=== PATIENT | male | born 1955 | race Caucasian/White ===

== ENCOUNTER 2021-01-22 20:10 | Emergency (ER) | payer OTHER ==
--- NOTE | 2021-01-22 20:48 | ERPHSYRPT ---
- History of Present Illness Time Seen by Provider: 01/22/21 20:45 Source: patient Exam Limitations: no limitations Patient Subjective Stated Complaint: pt states "I was on the hay wagon and fell off." Triage Nursing Assessment: pt ambulated into the er; pt is axo x4; c/o fall with arm pain; pt states that he fell off a hay wagon; pt states 1/10 pain to rt elbow/ rt lower arm; no deformity present; strong rt radial pulse; good cap refill to RUE; good ROM to rt arm; vitals wnl Physician History: pt states "I was on the hay wagon and fell off." pt states that he fell off a hay wagon; pt states 1/10 pain to rt elbow/ rt lower arm; Occurred: just prior to arrival Method of Injury: fell Quality: constant Severity of Pain-Max: moderate Severity of Pain-Current: moderate Extremities Pain Location: elbow: right, forearm: right Modifying Factors: Improves With: nothing Associated Symptoms: none Allergies/Adverse Reactions: No Known Drug Allergies Allergy (Unverified 01/22/21 20:27) Hx Tetanus, Diphtheria Vaccination/Date Given: Yes Hx Influenza Vaccination/Date Given: Yes Hx Pneumococcal Vaccination/Date Given: Yes Travel Risk - International Travel Have you traveled outside of the country in past 3 weeks: No - Coronavirus Screening Are you exhibiting any of the following symptoms?: No Close contact with a COVID-19 positive Pt in past 14-21 Days: No - Vaccine Status Have you recieved a Covid-19 vaccination: No - Review of Systems Constitutional: No Symptoms Eyes: No Symptoms Ears, Nose, & Throat: No Symptoms Respiratory: No Symptoms Cardiac: No Symptoms Abdominal/Gastrointestinal: No Symptoms Genitourinary Symptoms: No Symptoms Musculoskeletal: Fall, Injury, Joint Pain, Joint Swelling, No Deformity Skin: No Symptoms - Past Medical History Neurological History: No Pertinent History Cardiac History: Hypertension Respiratory History: No Pertinent History Endocrine Medical History: No Pertinent History Musculoskeletal History: Arthritis - Past Surgical History Past Surgical History: Yes Gastrointestinal: Appendectomy, Cholecystectomy Musculoskeletal: Orthopedic Surgery Other Surgical History: rt knee, rotator cuff - Social History Smoking Status: Never smoker Exposure to second hand smoke: No Drug Use: none Patient Lives Alone: No - Nursing Vital Signs Nursing Vital Signs: Initial Vital Signs Temperature 98.4 F 01/22/21 20:28 Pulse Rate 78 01/22/21 20:28 Respiratory Rate 18 01/22/21 20:28 Blood Pressure 130/79 01/22/21 20:28 O2 Sat by Pulse Oximetry 95 01/22/21 20:28 Pain Scale Pain Intensity 1 - Physical Exam General Appearance: no apparent distress Eyes, Ears, Nose, Throat Exam: normal ENT inspection Neck Exam: normal inspection Cardiovascular/Respiratory Exam: chest non-tender Abdominal Exam: non-tender Back Exam: normal inspection Shoulder Exam: normal inspection Elbow/Forearm Exam: normal ROM, soft tissue tenderness Hand Exam: normal inspection SpO2: 95 - Course Nursing assessment & vital signs reviewed: Yes - Radiology Exams Forearm X-ray Interpretation: Reviewed by me, Negative, No Fracture Elbow X-ray Interpretation: Reviewed by me, Negative, No Fracture Ordered Tests: Active Orders 24 hr Category Date Time Status ELBOW (MINIMUM 3 VIEWS) Stat Exams 01/22/21 Ordered FOREARM Stat Exams 01/22/21 Ordered - Progress Progress: improved Counseled pt/family regarding: diagnosis, need for follow-up, rad results - Departure Departure Disposition: Home Clinical Impression: Contusion of right elbow and forearm Qualifiers: Encounter type: initial encounter Qualified Code(s): S50.11XA - Contusion of right forearm, initial encounter Condition: Stable Critical Care Time: No Referrals: JAKI - NAYLA ROMAN NP [NON-STAFF PHY W/O PRIVILEGES] - [facility]-Ortho M-F [id number] Instructions: Contusion (DC) Additional Instructions: Discharge/Care Plan EDITH MATTHEWS was seen on 01/22/21 in the Emergency Room. The patient was counseled regarding Diagnosis,Lab results, Imaging studies, need for follow up and when to return to the Emergency Room. Prescriptions given: Discharge Note I have spoken with the patient and/or caregivers. I have explained the patient's condition, diagnosis and treatment plan based on the information available to me at this time. I have answered the patient's and/or caregiver's questions and addressed any concerns. The patient and/or caregivers have as good understanding of the patient's diagnosis, condition and treatment plan as can be expected at this point. The vital signs have been stable. The patient's condition is stable and appropriate for discharge from the emergency department. The patient will pursue further outpatient evaluation with the primary care physician or other designated or consulting physician as outlined in the discharge instructions. The patient and/or caregivers are agreeable to this plan of care and follow-up instructions have been explained in detail. The patient and/or caregivers have received these instruction. The patient/and or caregivers are aware that any significant change in condition or worsening of symptoms should prompt an immediate return to this or the closest emergency department or call 911. EDITH MATTHEWS was seen on 01/22/21 n the Emergency Room. At that time you were treated for an emergent condition, during your visit Laboratory, Radiology and/or other procedures may have been ordered. It is very important that you follow-up with your Primary Care Physician RIGO STEELE II within the next 24-48 hours to review your Emergency Room visit and the final results of testing that was ordered. Some test results such as Urine Cultures, Blood Cultures, and other cultures if ordered will not be finalized for 24-48 hours. If you do not have a Primary Care Provider please call the medical records department at [phone] ext [phone] to obtain a copy of your results or you may sign into our patient portal to obtain these results by visiting us @ [email or web address] and completing the following steps: 1. Click on the Patient Portal link 2. Click the Patient Self Enrollment Link to complete the enrollment form and entering your 3. Once the enrollment form is completed you will receive an email with a temporary ID and password at the email address you provided. 4. Next choose a user name and password. Your user name must be at least 4 characters long and your password must be at least 4 characters long. 5. Choose a security question from the list and provide your answer to the question. If you already have signed into the Health Portal you may access your Health Care Information 27/11 by the following steps: 1. Login to our website @ [email or web address] 2. Enter your original user name and password. FAQS The [facility] Health Portal is an online tool that contains your Lab Results, Radiology Reports, Visit History, Discharge Instructions and Health Summary Lab and Radiology Results will not be available for 72 hours on the portal. The Portal is a secure site, passwords are encryted and URLs are re-written so they cannot be copied and pasted. You and authorized family members are the only ones who can access your Portal. Also there is a timeout feature that protects your information if you leave the Portal page open. If you have technical difficulty please use the Contact Us link on the page this will allow you to submit any questions you have regarding the Portal or you may contact the Medical Record Department at [phone] ext [phone]. Take 500 mg of Tylenol and 400 mg of ibuprofen together with food every 8 hours for pain. Follow-up with your primary care physician or Ortho clinic at [facility] in next 2 to 3 days. If symptoms get worse come back to the emergency room.
[2021-01-22 21:14] VITALS: BP 114/71
[2021-01-22 21:16] VITALS: PULSE 80; O2SAT 95
--- NOTE | 2021-01-22 22:17 | XRAY ---
Indication: Pain following fall. Comparison: None 3 view right elbow demonstrates tiny spurring of the lateral epicondyle, olecranon process, and coronoid process. No other bony, articular, or soft tissue abnormalities.
--- NOTE | 2021-01-22 22:19 | XRAY ---
Indication: Pain following fall. Comparison: None 2 view right forearm demonstrates proximal posterior soft tissue swelling. No acute fracture, dislocation, or suspicious bony lesions. Elbow reported separately.
== END 2021-01-22 21:27 | disposition home or self-care (01) ==
LOC: ED 20:10
DX: S50.11XA Contusion of right forearm, initial encounter (principal); M25.521 Pain in right elbow; M25.531 Pain in right wrist; I10 Essential (primary) hypertension; W17.89XA Other fall from one level to another, initial encounter
CPT/HCPCS: 73080; 73090; 99283

== ENCOUNTER 2022-11-28 18:19 | Emergency (ER) | payer OTHER, MEDICARE ==
[2022-11-28 19:05] VITALS: TEMP 97.2
[2022-11-28] MEDS ORDERED: Sodium Chloride 0.9% 1000 ML 1,000 ML IV STA (20:04)
[2022-11-28] MEDS ORDERED: TORAdol 30 mg Injection IV ONE (20:04)
[2022-11-28] MEDS ORDERED: Sodium Chloride 0.9% 1000 ML 1,000 ML ONE (20:20)
[2022-11-28] MEDS ORDERED: TORAdol 30 mg Injection ONE (20:20)
[2022-11-28 20:26] LABS: Absolute Neutrophil Ct (ANC) 4.94 x10^3/uL (1.4-6.9); BASOPHIL % 0.5 % (0.0-0.4); Basophil (Absolute #) 0.04 x10^3/uL (0-0.4); Eosinophil (Absolute #) 0.17 x10^3/uL (0-0.5); Hematocrit 40.7 % (42-50); Hemoglobin 13.2 g/dL (12.5-18.0); IMMATURE GRAN # 0.02 x10^3u/L (0.00-0.03); IMMATURE GRAN % 0.2 % (0.00-0.4); Lymphocytes % 32.2 % (24.0-44.0); Mean Corpuscular Hemoglobin 28.2 pg (26-32); Mean Corpuscular Hgb Concent. 32.4 g/dL (32-36); Mean Platelet Volume 10.2 fL (7.5-11.0); Monocyte (Absolute #) 0.72 x10^3/uL (0.0-1.3); Monocytes % 8.3 % (0.0-12.0); Neutrophil % 56.8 % (36.0-66.0); Platelet Count 232 x10^3/uL (150-450); Red Blood Count 4.68 x10^6/uL (4.1-5.6); Red Cell Distribution Width 13.6 % (11.5-14.0); White Blood Count 8.7 x10^3/uL (4.0-10.5)
[2022-11-28 20:39] LABS: ALBUMIN 4.2 g/dL (3.5-5.0); ALKALINE PHOSPHATASE 65 U/L (38-126); BLOOD UREA NITROGEN 26 mg/dL (9-20); CHLORIDE 106 mmol/L (98-107); Carbon Dioxide 24 mmol/L (22-30); Creatinine 1 0.81 mg/dL (0.66-1.25); EST GLOMERULAR FILTRATION RATE > 60.0 ML/MIN; Glucose 83 mg/dL (74-106); Potassium 4.4 mmol/L (3.5-5.1); SGOT/AST 37 U/L (17-59); SGPT/ALT 45 U/L (0-50); SODIUM 139 mmol/L (137-145); Total Protein 7.5 g/dL (6.3-8.2)
--- NOTE | 2022-11-28 22:30 | ERPHSYRPT ---
- History of Present Illness Time Seen by Provider: 11/28/22 19:20 Historian: patient Exam Limitations: no limitations Patient Subjective Stated Complaint: PT HERE FOR RIGHT LOWER ABD/RIB AREA, SHARP STABBING PAIN, PAIN WORSE WITH A DEEP BREATH, WAS SEEN AT [facility] ON SUNDAY AND GIVEN PAIN MEDS Triage Nursing Assessment: PT ALERT, RESP EASY, SKIN W/D/P. ARRIVED PER , ABLE TO GET FROM TO BED. NO EDEMA NOTED Physician History: Patient is 67-year-old male presents to our ED with a sharp stabbing pain just below his right rib mid anterior lateral flank area. Pain worse with deep inspiration. Patient had similar symptoms last week. 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 Patient went to an outside hospital last week. Patient had labs and a CAT scan at that time. They advised him that the work- up was negative. Patient was discharged home with pain meds. 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 Pain is intermittent. Pain is reproduced with movement and palpation. Patient denies trauma. Pain improved with rest. at bedside. They voiced no other complaints concerns at this time. Portions of this note were created with voice recognition technology. There may be grammatical, spelling, punctuation or sound alike errors Timing/Duration: week(s) (1 week. Patient states pain started last week. Pain improved but did not completely resolve. Pain exacerbated today while baling hay) Activities at Onset: none Quality: aching Abdominal Pain Onset Location: flank Pain Radiation: no radiation Severity of Pain-Max: moderate Severity of Pain-Current: mild Modifying Factors: Improves With: movement, palpation, other (Movement and palpation reproduce pain) Previous symptoms: same symptoms as today Allergies/Adverse Reactions: ticagrelor [From Brilinta] Allergy (Verified 11/28/22 19:01) Home Medications: Oxycodone HCl/Acetaminophen [Oxycodone-Acetaminophen 5-325] 1 each PO QID [History] Hx Tetanus, Diphtheria Vaccination/Date Given: Yes Hx Influenza Vaccination/Date Given: Yes Hx Pneumococcal Vaccination/Date Given: Yes Immunizations Up to Date: Yes Travel Risk - International Travel Have you traveled outside of the country in past 3 weeks: No - Coronavirus Screening Are you exhibiting any of the following symptoms?: No - Vaccine Status Have you recieved a Covid-19 vaccination: No - Review of Systems Constitutional: No Symptoms, No Fever, No Chills Eyes: No Symptoms Ears, Nose, & Throat: No Symptoms Respiratory: No Symptoms, No Cough, No Dyspnea Cardiac: No Symptoms, No Chest Pain, No Edema, No Syncope Abdominal/Gastrointestinal: No Symptoms, No Abdominal Pain, No Nausea, No Vomiting, No Diarrhea Genitourinary Symptoms: No Symptoms, No Dysuria Musculoskeletal: No Symptoms, No Back Pain, No Neck Pain Skin: No Symptoms, No Rash Neurological: No Symptoms, No Dizziness, No Focal Weakness, No Sensory Changes Psychological: No Symptoms Endocrine: No Symptoms Hematologic/Lymphatic: No Symptoms Immunological/Allergic: No Symptoms All Other Systems: Reviewed and Negative - Past Medical History Neurological History: No Pertinent History Cardiac History: Hypertension Respiratory History: No Pertinent History Endocrine Medical History: No Pertinent History Musculoskeletal History: Arthritis - Past Surgical History Past Surgical History: Yes Gastrointestinal: Appendectomy, Cholecystectomy Musculoskeletal: Orthopedic Surgery Other Surgical History: rt knee, rotator cuff - Social History Smoking Status: Never smoker Exposure to second hand smoke: No Drug Use: none Patient Lives Alone: No - Nursing Vital Signs Nursing Vital Signs: Initial Vital Signs Pulse Rate 58 L 11/28/22 19:01 Respiratory Rate 20 11/28/22 19:01 Blood Pressure 120/47 11/28/22 19:01 O2 Sat by Pulse Oximetry 95 11/28/22 19:01 Pain Scale Pain Intensity [] 10 Pain Intensity 2 - Physical Exam General Appearance: no apparent distress, alert Eye Exam: PERRL/EOMI, eyes nml inspection Ears, Nose, Throat Exam: normal ENT inspection, pharynx normal, moist mucous membranes Neck Exam: normal inspection, non-tender, supple, full range of motion Respiratory Exam: normal breath sounds, lungs clear, airway intact, No respiratory distress Cardiovascular Exam: regular rate/rhythm, normal heart sounds, normal peripheral pulses Gastrointestinal/Abdomen Exam: soft, No tenderness, No mass Back Exam: normal inspection, normal range of motion, No CVA tenderness, No vertebral tenderness Extremity Exam: normal inspection, normal range of motion, pelvis stable Neurologic Exam: alert, oriented x 3, cooperative, normal mood/affect, nml cerebellar function, sensation nml, No motor deficits Skin Exam: normal color, warm, dry Lymphatic Exam: No adenopathy SpO2 Interpretation: normal SpO2: 95 O2 Delivery: Room Air - Course Nursing assessment & vital signs reviewed: Yes - CT Exams Abdomen/Pelvis CT Interpretation: Tele-radiologist Report (Change compared to 03/16/2022. Diffuse fecal stasis. Diverticulosis, right renal cyst, nonobstructing left renal micro calculus, fatty liver) Ordered Tests: Active Orders 24 hr Category Date Time Status IV Insertion STAT Care 11/28/22 20:04 Active ABDOMEN AND PELVIS W CONTRAST [CT] Stat Exams 11/28/22 20:03 Taken CBC W DIFF Stat Lab 11/28/22 20:23 Completed CMP Stat Lab 11/28/22 20:23 Completed D-DIMER QUANTITATIVE Stat Lab 11/28/22 20:23 Completed POCT GLUCOSE Stat Lab 11/28/22 21:15 Completed TROPONIN Q4H Lab 11/28/22 20:23 Completed TROPONIN Q4H Lab 11/29/22 00:15 Ordered TROPONIN Q4H Lab 11/29/22 04:15 Ordered UA W/RFX UR CULTURE Stat Lab 11/28/22 22:34 Completed Medication Summary Discontinued Medications Generic Name Dose Route Start Last Admin Trade Name Freq PRN Reason Stop Dose Admin Sodium Chloride 1,000 mls @ 999 mls/hr 11/28/22 20:04 11/28/22 21:49 Sodium Chloride 0.9% 1000 Ml IV 11/28/22 21:04 Infused .Q1H1M STA Infusion Sodium Chloride Confirm 11/28/22 20:20 Sodium Chloride 0.9% 1000 Ml Administered 11/28/22 20:21 Dose 1,000 mls @ ud .ROUTE .STK-MED ONE Ketorolac Tromethamine 30 mg 11/28/22 20:04 11/28/22 20:30 Ketorolac Tromethamine 30 Mg/Ml Inj IV 11/28/22 20:05 30 mg STAT ONE Administration Ketorolac Tromethamine Confirm 11/28/22 20:20 Ketorolac Tromethamine 30 Mg/Ml Inj Administered 11/28/22 20:21 Dose 30 mg .ROUTE .STK-MED ONE Lab/Rad Data: Laboratory Result Diagrams 11/28/22 20:23 11/28/22 20:23 Laboratory Results 11/28/22 11/28/22 11/28/22 Range/Units 22:34 21:15 20:23 WBC (4.0-10.5) x10^3/uL RBC (4.1-5.6) x10^6/uL Hgb (12.5-18.0) g/dL Hct (42-50) % MCV (78-100) fL MCH (26-32) pg MCHC (32-36) g/dL RDW (11.5-14.0) % Plt Count (150-450) x10^3/uL MPV (7.5-11.0) fL Gran % (36.0-66.0) % Immature Gran % (Auto) (0.00-0.4) % Nucleat RBC Rel Count (0.00-0.1) % Eos # (Auto) (0-0.5) x10^3/uL Immature Gran # (Auto) (0.00-0.03) x10^3u/L Absolute Lymphs (auto) (1.0-4.6) x10^3/uL Absolute Monos (auto) (0.0-1.3) x10^3/uL Absolute Nucleated RBC (0.00-0.01) x10^3u/L Lymphocytes % (24.0-44.0) % Monocytes % (0.0-12.0) % Eosinophils % (0.00-5.0) % Basophils % (0.0-0.4) % Absolute Granulocytes (1.4-6.9) x10^3/uL Basophils # (0-0.4) x10^3/uL D-Dimer 0.29 (0.0-0.50) mg/L Sodium (137-145) mmol/L Potassium (3.5-5.1) mmol/L Chloride (98-107) mmol/L Carbon Dioxide (22-30) mmol/L Anion Gap (5-15) MEQ/L BUN (9-20) mg/dL Creatinine (0.66-1.25) mg/dL Estimated GFR ML/MIN Glucose (74-106) mg/dL POC Glucometer 82 (74 to 106) mg/dL Calcium (8.4-10.2) mg/dL Total Bilirubin (0.2-1.3) mg/dL AST (17-59) U/L ALT (0-50) U/L Alkaline Phosphatase (38-126) U/L Troponin I (0.000-0.034) ng/mL Serum Total Protein (6.3-8.2) g/dL Albumin (3.5-5.0) g/dL Urine Color Yellow (Yellow) Urine Appearance Cloudy A (Clear) Urine pH 5.5 (4.6-8.0) Ur Specific [place] >=1.030 A (1.005-1.030) Urine Protein Negative (Negative) Urine Glucose (UA) Negative (Negative) mg/dL Urine Ketones Negative (Negative) Urine Blood Negative (Negative) Urine Nitrite Negative (Negative) Urine Bilirubin Negative (Negative) Urine Urobilinogen 1.0 A (0.2) mg/dL Ur Leukocyte Esterase Negative (Negative) U Hyaline Cast (Auto) NONE SEEN (0-2) /LPF Urine Microscopic RBC 0-2 (0-5) /HPF Urine Microscopic WBC 0-2 (0-5) /HPF Ur Epithelial Cells None Seen (None Seen) /HPF Urine Bacteria None Seen (None Seen) /HPF Urine Culture Reflexed NO (NO) 11/28/22 11/28/22 11/28/22 Range/Units 20:23 20:23 20:23 WBC 8.7 (4.0-10.5) x10^3/uL RBC 4.68 (4.1-5.6) x10^6/uL Hgb 13.2 (12.5-18.0) g/dL Hct 40.7 L (42-50) % MCV 87.0 (78-100) fL MCH 28.2 (26-32) pg MCHC 32.4 (32-36) g/dL RDW 13.6 (11.5-14.0) % Plt Count 232 (150-450) x10^3/uL MPV 10.2 (7.5-11.0) fL Gran % 56.8 (36.0-66.0) % Immature Gran % (Auto) 0.2 (0.00-0.4) % Nucleat RBC Rel Count 0.0 (0.00-0.1) % Eos # (Auto) 0.17 (0-0.5) x10^3/uL Immature Gran # (Auto) 0.02 (0.00-0.03) x10^3u/L Absolute Lymphs (auto) 2.80 (1.0-4.6) x10^3/uL Absolute Monos (auto) 0.72 (0.0-1.3) x10^3/uL Absolute Nucleated RBC 0.00 (0.00-0.01) x10^3u/L Lymphocytes % 32.2 (24.0-44.0) % Monocytes % 8.3 (0.0-12.0) % Eosinophils % 2.0 (0.00-5.0) % Basophils % 0.5 (0.0-0.4) % Absolute Granulocytes 4.94 (1.4-6.9) x10^3/uL Basophils # 0.04 (0-0.4) x10^3/uL D-Dimer (0.0-0.50) mg/L Sodium 139 (137-145) mmol/L Potassium 4.4 (3.5-5.1) mmol/L Chloride 106 (98-107) mmol/L Carbon Dioxide 24 (22-30) mmol/L Anion Gap 14.0 (5-15) MEQ/L BUN 26 H (9-20) mg/dL Creatinine 0.81 (0.66-1.25) mg/dL Estimated GFR > 60.0 ML/MIN Glucose 83 (74-106) mg/dL POC Glucometer (74 to 106) mg/dL Calcium 9.0 (8.4-10.2) mg/dL Total Bilirubin 1.00 (0.2-1.3) mg/dL AST 37 (17-59) U/L ALT 45 (0-50) U/L Alkaline Phosphatase 65 (38-126) U/L Troponin I < 0.012 (0.000-0.034) ng/mL Serum Total Protein 7.5 (6.3-8.2) g/dL Albumin 4.2 (3.5-5.0) g/dL Urine Color (Yellow) Urine Appearance (Clear) Urine pH (4.6-8.0) Ur Specific [place] (1.005-1.030) Urine Protein (Negative) Urine Glucose (UA) (Negative) mg/dL Urine Ketones (Negative) Urine Blood (Negative) Urine Nitrite (Negative) Urine Bilirubin (Negative) Urine Urobilinogen (0.2) mg/dL Ur Leukocyte Esterase (Negative) U Hyaline Cast (Auto) (0-2) /LPF Urine Microscopic RBC (0-5) /HPF Urine Microscopic WBC (0-5) /HPF Ur Epithelial Cells (None Seen) /HPF Urine Bacteria (None Seen) /HPF Urine Culture Reflexed (NO) - Progress Progress: improved Progress Note: Patient is a 67-year-old male presents to our ED for evaluation of pain to his right flank. Patient experiences same symptoms last week while baling [employer]. Patient had a negative work-up at an outside hospital. Patient went back to [employer] and did not give himself rest time. Patient reinjured his right flank. Labs include CBC CMP D-dimer which were all negative. Troponin negative. Patient received normal saline and Toradol for pain control. Pain essentially resolved. Patient resting comfortably. CT abdomen pelvis shows diffuse fecal stasis, diverticulosis, bilateral renal cyst nonobstructing left renal micro calculi and fatty liver. No new acute findings. Vital stable. Urinalysis negative for UTI. Patient states he is ready for discharge. Patient advised to avoid baling hay avoid anything strenuous until his pain completely resolves. This may take 7 to 10 days. Patient advised that if he continues to bail or returns to [facility] before this timeframe the pain may recur. A prescription for Toradol for the patient's pharmacy. Patient agrees to follow- up with his primary care doctor within 48 hours for reevaluation. Portions of this note were created with voice recognition technology. There may be grammatical, spelling, punctuation or sound alike errors Complexity of problems addressed is moderate acute complicated. Complex of data reviewed and analyzed is moderate. Test ordered. Test reviewed. Findings correlated clinically with H&P. Risk of complication and or risk morbidity/mortality of patient management is moderate. Patient received a prescription for Toradol. Plan of care established for shared decision making. No social determinants of health present to impede follow-up. Vital stable. Patient agrees to follow-up with his primary care doctor within 48 hours for reevaluation. Time of discharge patient approximately 15 minutes. Portions of this note were created with voice recognition technology. There may be grammatical, spelling, punctuation or sound alike errors 11/28/22 23:39 Counseled pt/family regarding: lab results, diagnosis - Departure Departure Disposition: Home Clinical Impression: Diffuse fecal stasis, Diverticulosis, Renal cyst, right, Nephrolithiasis, Fatty liver, Flank pain Condition: Stable Critical Care Time: No Referrals: SHAD BAXTER, PACKAGING SUPERVISOR [Primary Care Provider] - Follow up/PCP as directed Instructions: Diverticulosis (DC) Additional Instructions: Discharge/Care Plan EDITH MATTHEWS was seen on 11/28/22 in the Emergency Room. The patient was counseled regarding Diagnosis,Lab results, Imaging studies, need for follow up and when to return to the Emergency Room. Prescriptions given: Discharge Note I have spoken with the patient and/or caregivers. I have explained the patient's condition, diagnosis and treatment plan based on the information available to me at this time. I have answered the patient's and/or caregiver's questions and addressed any concerns. The patient and/or caregivers have as good understanding of the patient's diagnosis, condition and treatment plan as can be expected at this point. The vital signs have been stable. The patient's condition is stable and appropriate for discharge from the emergency department. The patient will pursue further outpatient evaluation with the primary care physician or other designated or consulting physician as outlined in the disc harge instructions. The patient and/or caregivers are agreeable to this plan of care and follow-up instructions have been explained in detail. The patient and/or caregivers have received these instruction. The patient/and or caregivers are aware that any significant change in condition or worsening of symptoms should prompt an immediate return to this or the closest emergency department or call 911. Prescriptions: Ketorolac Trometh 10 mg Tab [TORAdol 10 MG TABLET] 10 mg PO TID 5 Days #15 tablet
[2022-11-28 22:45] LABS: Appearance Cloudy (Clear); Bacteria None Seen /HPF (None Seen); Bilirubin Negative (Negative); Blood Negative (Negative); Epithelial Cells None Seen /HPF (None Seen); Glucose, Urine Negative (Negative); Hyaline Casts NONE SEEN /LPF (0-2); Ketones Negative (Negative); Leukocyte Esterase Negative (Negative); Nitrite Negative (Negative); Ph 5.5 (4.6-8.0); Protein,Urine Dip Negative (Negative); RBC 0-2 /HPF (0-5); Specific Gravity >=1.030 (1.005-1.030); WBC 0-2 /HPF (0-5)
[2022-11-28 22:53] LABS: ADD URINE CULTURE? NO (NO)
[2022-11-28 23:32] VITALS: BP 140/68; PULSE 62; RESP 20
[2022-11-28 23:44] VITALS: O2SAT 95
--- NOTE | 2022-11-29 08:54 | XRAY ---
Indication: Right abdomen pain 1 week. History renal stones and testicular cancer. Multiple contiguous axial images obtained through the abdomen and pelvis using 80 cc Isovue 370 contrast. Comparison: March 16, 2022 Lung bases again demonstrate scattered subsegmental atelectasis/scarring and tiny calcified/noncalcified granulomas. No infiltrate or effusion. Heart is not enlarged. Noncontrasted stomach and bowel loops nonobstructed. Mild diffuse fecal stasis greatest and right hemicolon. Again mild fatty liver, multiple bilateral renal cysts, nonobstructing left renal micro-calculus, sigmoid diverticulosis, cholecystomy, and appendectomy. No free fluid/air. Remaining liver, pancreas, spleen, adrenal glands, kidneys, ureters, and bladder are unremarkable. Again moderate aortoiliac calcifications. No AAA or pathologic retroperitoneal lymphadenopathy. Osseous structures intact again with osteopenia and mild degenerative changes throughout the spine. Stable small fatty right inguinal hernia. Impression: Again mild fecal stasis, sigmoid diverticulosis, fatty liver, bilateral renal cysts, nonobstructing left renal micro-calculus, arteriosclerotic disease, chronic bony findings, and fatty right inguinal hernia. No new/acute abnormalities.
== END 2022-11-28 23:51 | disposition home or self-care (01) ==
LOC: ED 18:19
DX: K59.89 Other specified functional intestinal disorders (principal); K57.90 Diverticulosis of intestine, part unspecified, without perforation or abscess without bleeding; N28.1 Cyst of kidney, acquired; N20.0 Calculus of kidney; K76.0 Fatty (change of) liver, not elsewhere classified; R10.9 Unspecified abdominal pain; R07.81 Pleurodynia; I10 Essential (primary) hypertension; Z79.891 Long term (current) use of opiate analgesic; Z28.310 Unvaccinated for COVID-19
CPT/HCPCS: 36000; 36415; 74177; 80053; 81001; 82947; 84484; 85025; 85379; 96360; 96374; 99284; J1885

== ENCOUNTER 2025-03-12 12:45 | Emergency (ER) | payer OTHER ==
[2025-03-12 12:56] VITALS: TEMP 98.9
--- NOTE | 2025-03-12 13:01 | ERPHSYRPT ---
- History of Present Illness Physician History: Shortness of breath, onset of symptoms over the last several weeks, the had noticed that his ankles were a bit more swollen and he had more exertional dyspnea, they apparently were seen by the primary care doctor several weeks ago in clinic and the doctor did not see much at that time when she had mentioned that his legs were swollen, he has a schedule appoint with cardiology in about 12 days, he denied having any chest pain, no recent change in any medications Timing/Duration: week(s) (2) Severity of Dyspnea-Max: moderate Severity of Dyspnea-Current: mild Modifying Factors: Improves With: exertion Associated Symptoms: leg swelling Allergies/Adverse Reactions: ticagrelor [From Brilinta] Allergy (Verified 11/28/22 19:01) lisinopril Adverse Reaction (Verified 03/12/25 12:57) meloxicam [From Mobic] Adverse Reaction (Verified 03/12/25 12:57) Home Medications: Unobtainable 03/12/25 [History] Hx Tetanus, Diphtheria Vaccination/Date Given: Yes Hx Influenza Vaccination/Date Given: Yes Hx Pneumococcal Vaccination/Date Given: Yes - Past Medical History Pertinent Past Medical History: Yes Neurological History: No Pertinent History Cardiac History: Hypertension Respiratory History: No Pertinent History Endocrine Medical History: No Pertinent History Musculoskeletal History: Arthritis - Past Surgical History Past Surgical History: Yes Gastrointestinal: Appendectomy, Cholecystectomy Musculoskeletal: Orthopedic Surgery Other Surgical History: rt knee, rotator cuff - Social History Smoking Status: Never smoker Exposure to second hand smoke: No Drug Use: none Patient Lives Alone: No - Nursing Vital Signs Nursing Vital Signs: Initial Vital Signs Pulse Rate 82 03/12/25 12:46 Respiratory Rate 19 03/12/25 12:46 Blood Pressure 120/92 03/12/25 12:46 O2 Sat by Pulse Oximetry 93 L 03/12/25 12:46 Pain Scale Pain Intensity 2 - Physical Exam General Appearance: no apparent distress, alert, obese Eye Exam: PERRL/EOMI Ears, Nose, Throat Exam: hearing grossly normal, normal ENT inspection Neck Exam: normal inspection, supple Respiratory Exam: normal breath sounds, lungs clear Cardiovascular/Chest Exam: normal heart sounds, regular rate/rhythm Abdominal/Gastrointestinal Exam: soft, No tenderness, No distention, No mass Extremity Exam: non-tender, normal range of motion, normal inspection, no calf tenderness, no pedal edema Neurologic Exam: alert, oriented x 3, 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, 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, sensation nml, No motor deficits Skin Exam: normal color, warm, No dry SpO2 Interpretation: normal Ordered Tests: Active Orders 24 hr Category Date Time Status 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 STAT Care 03/12/25 12:50 Active EKG-ER Only STAT Care 03/12/25 12:49 Active IV Insertion STAT Care 03/12/25 12:49 Active CHEST 1 VIEW (PORTABLE) Stat Exams 03/12/25 12:50 Completed CBC W DIFF Stat Lab 03/12/25 13:05 Completed CMP Stat Lab 03/12/25 13:05 Completed Lactic Acid Stat Lab 03/12/25 13:02 Completed NT PRO BNPII Stat Lab 03/12/25 13:05 Completed TROPONIN Q4H Lab 03/12/25 13:05 Completed TROPONIN Q4H Lab 03/12/25 15:10 Completed TROPONIN Q4H Lab 03/12/25 21:00 Ordered Lab/Rad Data: Laboratory Result Diagrams 03/12/25 13:05 03/12/25 13:05 Laboratory Results 03/12/25 03/12/25 03/12/25 Range/Units 15:10 13:05 13:05 WBC (4.23-9.07) x10^3/uL RBC (4.63-6.08) x10^6/uL Hgb (13.7-17.5) g/dL Hct (40.1-51.0) % MCV (79.0-92.2) fL MCH (25.7-32.2) pg MCHC (32.3-36.5) g/dL RDW (11.6-14.4) % Plt Count (163-337) x10^3/uL MPV (9.4-12.4) fL Gran % (34.0-67.9) % Immature Gran % (Auto) (0.001-0.429) % Nucleat RBC Rel Count (0.00-0.2) % Eos # (Auto) (0.04-0.54) x10^3/uL Immature Gran # (Auto) (0.001-0.031) x10^3u/L Absolute Lymphs (auto) (1.32-3.57) x10^3/uL Absolute Monos (auto) (0.30-0.82) x10^3/uL Absolute Nucleated RBC (0.00-0.012) x10^3u/L Lymphocytes % (21.8-53.1) % Monocytes % (5.3-12.2) % Eosinophils % (0.8-7.0) % Basophils % (0.2-1.2) % Absolute Granulocytes (1.78-5.38) x10^3/uL Basophils # (0.01-0.08) x10^3/uL Sodium 133 L (135-145) mmol/L Potassium 4.0 (3.5-5.1) mmol/L Chloride 101 (98-107) mmol/L Carbon Dioxide 21 L (22-30) mmol/L Anion Gap 15.3 H (5-15) MEQ/L BUN 20 (9-20) mg/dL Creatinine 0.90 (0.66-1.25) mg/dL Estimated GFR 93.6 ML/MIN Glucose 134 H (74-106) mg/dL Lactic Acid (0.4-2.0) Calcium 9.4 (8.4-10.2) mg/dL Total Bilirubin 1.60 H (0.2-1.3) mg/dL AST 29 (17-59) U/L ALT 36 (0-50) U/L Alkaline Phosphatase 81 (38-126) U/L Troponin I < 0.012 < 0.012 (0.000-0.033) ng/mL NT-Pro-B Natriuret Pep 135 (<300) pg/mL Serum Total Protein 7.8 (6.3-8.2) g/dL Albumin 4.6 (3.5-5.0) g/dL 03/12/25 03/12/25 Range/Units 13:05 13:02 WBC 13.8 H (4.23-9.07) x10^3/uL RBC 4.94 (4.63-6.08) x10^6/uL Hgb 13.7 (13.7-17.5) g/dL Hct 41.7 (40.1-51.0) % MCV 84.4 (79.0-92.2) fL MCH 27.7 (25.7-32.2) pg MCHC 32.9 (32.3-36.5) g/dL RDW 13.1 (11.6-14.4) % Plt Count 228 (163-337) x10^3/uL MPV 9.9 (9.4-12.4) fL Gran % 83.9 H (34.0-67.9) % Immature Gran % (Auto) 0.3 (0.001-0.429) % Nucleat RBC Rel Count 0.0 (0.00-0.2) % Eos # (Auto) 0.09 (0.04-0.54) x10^3/uL Immature Gran # (Auto) 0.04 H (0.001-0.031) x10^3u/L Absolute Lymphs (auto) 0.83 L (1.32-3.57) x10^3/uL Absolute Monos (auto) 1.19 H (0.30-0.82) x10^3/uL Absolute Nucleated RBC 0.00 (0.00-0.012) x10^3u/L Lymphocytes % 6.0 L (21.8-53.1) % Monocytes % 8.6 (5.3-12.2) % Eosinophils % 0.7 L (0.8-7.0) % Basophils % 0.5 (0.2-1.2) % Absolute Granulocytes 11.60 H (1.78-5.38) x10^3/uL Basophils # 0.07 (0.01-0.08) x10^3/uL Sodium (135-145) mmol/L Potassium (3.5-5.1) mmol/L Chloride (98-107) mmol/L Carbon Dioxide (22-30) mmol/L Anion Gap (5-15) MEQ/L BUN (9-20) mg/dL Creatinine (0.66-1.25) mg/dL Estimated GFR ML/MIN Glucose (74-106) mg/dL Lactic Acid 1.3 (0.4-2.0) Calcium (8.4-10.2) mg/dL Total Bilirubin (0.2-1.3) mg/dL AST (17-59) U/L ALT (0-50) U/L Alkaline Phosphatase (38-126) U/L Troponin I (0.000-0.033) ng/mL NT-Pro-B Natriuret Pep (<300) pg/mL Serum Total Protein (6.3-8.2) g/dL Albumin (3.5-5.0) g/dL - Progress Progress: re-examined Air Movement: fair Progress Note: 03/12/25 17:09 Discussed results, the patient states that 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, 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 and other minerals, he has never had any Pulmonary Function testing, I will give him a referral to pulmonary medicine, he will follow-up with cardiology as scheduled - Departure Departure Disposition: Home Clinical Impression: Exertional dyspnea Condition: Stable Critical Care Time: No Referrals: RIGO STEELE III, [Primary Care Provider, [facility]] - Follow up/PCP as directed VIGNESH LEAL [ACTIVE STAFF, PULMONARY MEDICINE] - Follow up/PCP as directed Referral Note: Call for appointment Instructions: Shortness of Breath (Dyspnea) (DC) Additional Instructions: Call for appointment with pulmonary medicine, Follow-up to cardiology as scheduled
[2025-03-12 13:04] LABS: BASOPHIL % 0.5 % (0.2-1.2); Basophil (Absolute #) 0.07 x10^3/uL (0.01-0.08); Eosinophil (Absolute #) 0.09 x10^3/uL (0.04-0.54); Hematocrit 41.7 % (40.1-51.0); Hemoglobin 13.7 g/dL (13.7-17.5); IMMATURE GRAN # 0.04 x10^3u/L (0.001-0.031); IMMATURE GRAN % 0.3 % (0.001-0.429); Lymphocyte (Absolute #) 0.83 x10^3/uL (1.32-3.57); Mean Corpuscular Hemoglobin 27.7 pg (25.7-32.2); Mean Corpuscular Hgb Concent. 32.9 g/dL (32.3-36.5); Monocyte (Absolute #) 1.19 x10^3/uL (0.30-0.82); NUCLEATED RBC # 0.00 x10^3u/L (0.00-0.012); NUCLEATED RBC % 0.0 % (0.00-0.2); Platelet Count 228 x10^3/uL (163-337); Red Blood Count 4.94 x10^6/uL (4.63-6.08); White Blood Count 13.8 x10^3/uL (4.23-9.07)
[2025-03-12 13:29] LABS: Calcium 9.4 mg/dL (8.4-10.2); Carbon Dioxide 21.0 mmol/L (22-30); Creatinine 1 0.9 mg/dL (0.66-1.25); EST GLOMERULAR FILTRATION RATE 93.6 ML/MIN; Glucose 134.0 mg/dL (74-106); NT PRO BNPII 135.0 pg/mL (<300); Potassium 4.0 mmol/L (3.5-5.1); SGOT/AST 29.0 U/L (17-59); SGPT/ALT 36.0 U/L (0-50); Total Protein 7.8 g/dL (6.3-8.2)
--- NOTE | 2025-03-12 13:40 | XRAY ---
Indication: Short of breath. Comparison: None Portable chest hyperinflated with hazy left base interstitial alveolar opacities and tiny effusion. Rule out pneumonia. Remaining heart and lungs unremarkable. Bony thorax intact with osteopenia and mild degenerative changes.
[2025-03-12 15:04] VITALS: PULSE 93; RESP 34; O2SAT 93
[2025-03-12 17:22] VITALS: BP 150/74
== END 2025-03-12 17:40 | disposition home or self-care (01) ==
LOC: ED 12:45
DX: R06.09 Other forms of dyspnea (principal); I10 Essential (primary) hypertension